=== PATIENT | female | born 1965 | race Caucasian/White ===

== ENCOUNTER → 2021-05-30 | Outpatient (CLI) | payer OTHER ==
--- NOTE | 2021-05-30 18:06 | RAD ---
EXAM: XR LUMBAR SPINE 2-3V 05/30/2021 9:26 AM CLINICAL INDICATION: Low back pain rating down left leg COMPARISON: None TECHNIQUE: 3 views of the lumbar spine FINDINGS: The bones are diffusely demineralized. There are age-indeterminate superior endplate compr ession fractures of L1, L2, L3, and L4 with up to 40 percent vertebral body height loss. No evidence of retropulsion of cortex. There is 3 mm anterolisthesis of L4 on L5. Mild disc space narrowing throu ghout the lumbar spine. Cystectomy clips are noted. IMPRESSION: 1. Osteopenia. 2. Compression fractures of L1-L4, age indeterminate. There is up to 40 percent vertebral body height loss and no retropulsion of cortex. 3. Mild degenerative disc disease. Electronically signed by: Cecily Phelan MD (05/30/2021 6:04 PM) [id number]
== END ==
LOC: RAD 09:14
DX: Z02.71 Encounter for disability determination (principal); S32.040A Wedge compression fracture of fourth lumbar vertebra, initial encounter for closed fracture; S32.010A Wedge compression fracture of first lumbar vertebra, initial encounter for closed fracture; S32.020A Wedge compression fracture of second lumbar vertebra, initial encounter for closed fracture; S32.030A Wedge compression fracture of third lumbar vertebra, initial encounter for closed fracture; M51.36 Other intervertebral disc degeneration, lumbar region; M85.88 Other specified disorders of bone density and structure, other site; M43.16 Spondylolisthesis, lumbar region; M48.061 Spinal stenosis, lumbar region without neurogenic claudication; X58.XXXA Exposure to other specified factors, initial encounter; Y93.89 Activity, other specified; Y92.89 Other specified places as the place of occurrence of the external cause; Y99.8 Other external cause status
CPT/HCPCS: 72100